=== PATIENT | male | born 1960 | race Caucasian/White ===

== ENCOUNTER → 2017-05-29 | Outpatient (CLI) | payer OTHER | LOC: FIMAGING 10:50 | PROVIDERS: ATTEND Internal Medicine Infectious Disease | DX: R91.8 Other nonspecific abnormal finding of lung field (principal); S22.42XD Multiple fractures of ribs, left side, subsequent encounter for fracture with routine healing; Z95.9 Presence of cardiac and vascular implant and graft, unspecified ==

== ENCOUNTER → 2018-04-04 | Outpatient (CLI) | payer OTHER | LOC: FIMAGING 09:53 | PROVIDERS: ATTEND Internal Medicine Infectious Disease | DX: J98.4 Other disorders of lung (principal); Z87.81 Personal history of (healed) traumatic fracture ==